=== PATIENT | male | born 1955 | race Caucasian/White ===

== ENCOUNTER 2018-04-29 08:35 | Day surgery (SDC) | payer BC ==
[~2018-04-29 08:35] MED LIST: Lactated Ringers 1,000 ML IV SCH
[2018-04-29] MEDS ORDERED: Lidocaine 1% 30 ML SDV ONE (08:36)
[2018-04-29] MEDS ORDERED: Propofol 200 MG/20 ML SDV IV ONE (08:36)
[2018-04-29] MEDS ORDERED: Lactated Ringers 1,000 ML IV SCH ×2 (09:15)
[2018-04-29] MEDS ORDERED: Simethicone Drops 40 MG/0.6 ML 30 ML Bottle ONE (10:35)
--- NOTE | 2018-04-29 10:53 | PCM.OPNOTE ---
- General Post-Op/Procedure Note Date of Surgery/Procedure: 04/29/18 Operative Procedure(s): c scope Findings: sigmoid diverticulosis internal hemorrhoids Pre Op Diagnosis: brbpr Post-Op Diagnosis: sigmoid diverticulosis. internal hemorrhoids Anesthesia Technique: TAY Primary Surgeon: Osmin Chong Anesthesia Provider: Zaid Norris Pathology: none Complications: None Condition: Good Free Text/Narrative:: see dictation
--- NOTE | 2018-04-29 11:32 | OR ---
DATE OF OPERATION: 04/29/2018 SURGEON: Osmin Chong MD PROCEDURE PERFORMED: Colonoscopy. PREOPERATIVE DIAGNOSIS: Occasional bright red blood per rectum. POSTOPERATIVE DIAGNOSES: 1. Internal hemorrhoids. 2. Sigmoid diverticulosis. INDICATIONS FOR PROCEDURE: This is a 63-year-old white male, referred for colonoscopy with the above-mentioned complaints. He was offered and accepted same. DESCRIPTION OF OPERATION: After an excellent IV sedation was administered, digital rectal exam was performed. No marked abnormality was noted. Flexible colonoscope was inserted and advanced to the cecum without difficulty. The prep was excellent. The following findings were noted. Ascending colon, unremarkable. Transverse colon, unremarkable. Descending colon, unremarkable. Sigmoid, scattered diverticula. Rectum, grade 1 internal hemorrhoids noticed on retroflexion of the scope. This is the presumed cause of his bleeding. The patient tolerated the procedure well. RECOMMENDATIONS: Repeat colonoscopy in 10 years. Follow up on a p.r.n. basis if bleeding gets severe. /[id number] /MARIA ELENA
== END 2018-04-29 11:30 | disposition home or self-care (01) ==
LOC: FB.SDS 08:35
PROVIDERS: ATTEND Surgery
DX: K62.5 Hemorrhage of anus and rectum (principal); K64.0 First degree hemorrhoids; K57.30 Diverticulosis of large intestine without perforation or abscess without bleeding; K58.9 Irritable bowel syndrome, unspecified; I10 Essential (primary) hypertension; E78.2 Mixed hyperlipidemia; F41.8 Other specified anxiety disorders; F32.9 Major depressive disorder, single episode, unspecified; Z79.82 Long term (current) use of aspirin; Z79.899 Other long term (current) drug therapy; Z88.0 Allergy status to penicillin
CPT/HCPCS: A9270-GY; J2704; J7120